=== PATIENT | male | born 1975 | race African-American/Black ===

== ENCOUNTER 2020-11-05 13:50 | Emergency (ER) | payer OTHER ==
[~2020-11-05] VITALS: Ht 182.9 cm; Wt 83.0 kg
--- NOTE | ~2020-11-05 | EMS ---
[facility] [address] [place] [address] EMS Patient Care Report Name: MARI LANDEROS Room #: REG ABA Cartwright#: [id number] Admission: 11/05/20 Attend Phys: Discharge: Date of : 79 Report #: [id number] THIS REPORT FOR: //name// Report Transmitted: 11/05/2020 13:36 EMS Care Summary [facility] Incident [id number] @ 11/05/2020 13:07 Incident Location [address] [place] [address] Patient MARI LANDEROS Male, 45 Years 1975 Patient Address [address] [place] [address] Patient History None Reported, Patient Allergies No known allergies, Patient Medications None Reported, Chief Complaint chest pressure with dizziness Disposition Transported No Lights/[place] Reason Heart Problems/AICD Transported To [facility] Narrative History-Pt started to have chest pain/pressure about 2 weeks ago. Pt was evaluated at an urgent care and referred to a search engine marketing strategist. Today the pt was dizzy with chest pain so 911 was called. Pt states that he had the COVID last Pfizer shot about 3 weeks ago. [facility] [address] [place] [address] EMS Patient Care Report Name: MARI LANDEROS Room #: PARADISE Cartwright#: [id number] Admission: 11/05/20 Attend Phys: Discharge: Date of : 79 Report #: [id number] Assessment: Neuros: GCS 15, A/O times 4, HEENT: Eyes: ASIA, neg blurred or double vision, Head: neg headache. Throat: patent. Neck: supple, neg blurred or double vision. Chest: chest pressure that has been going on for 2 weeks, hurts worse upon inspiration, radiates to the L shoulders, is a 3/10 but was a 8/10 earlier. CBBS, neg SOB. Abdomen: LUQ tenderness to palpation all other quadrants soft, non tender, Pelvis/GI/: normal urination and BM's. Extremities: +CMS. Back: neg pain, Skin: pink, dry, warm Rendered Tx-Pt had taken in date ASA 324 mg before our arrival, Vitals taken and monitored, EKG, 12 lead, infrared temp, IV Destination-Pt was sitting on a couch upon our arrival in the care of S[facility]. After our assessment the pt was reluctant to go to the ED but his had arrived then the pt agreed to be transported. Pt was able to walk outside to the cot where he was secured with 3 straps and shoulder straps then moved to the ambulance. Once in the ambulance pt was put in a POC which was semi-fowlers. Pt was transported to [facility] and taken to room 6. Pt was able to move to the bed on his own and care was transferred to staff. Initial Vitals @13:20P: 67,R: 14,SpO2: 98,AR Suspected: false @13:19P: 68,R: 81,AR Suspected: false @13:20P: 60,R: 14,BP: 169/105,Pain: 3/10,GCS: 15,SpO2: 98,Revised Trauma: 12, @13:35P: 72,R: 14,BP: 162/88,Pain: 3/10,GCS: 15,SpO2: 99,Revised Trauma: 12, @13:42P: 58,R: 14,BP: 144/85,GCS: 15,SpO2: 98,Revised Trauma: 12, @PTAP: 66,R: 10,BP: 164/90,Pain: 3/10,GCS: 15,Temp: 98.8F,SpO2: 98,Revised Trauma: 12, Assessments @13:20MENTAL:Person Oriented,Time Oriented,Place Oriented,Event Oriented,SKIN:HEENT:Eyes: Left Pupil: 4-mm,Eyes: Right Pupil: 4-mm,Head/Face: No Abnormalities,Neck/Airway: No Abnormalities,LUNG SOUNDS:Left Upper: Tenderness,ABDOMEN:Left Upper: Tenderness,PELVIS//GI:No Abnormalities,EXTREMITIES:Left Arm: No Abnormalities,Right Arm: No Abnormalities,Left Leg: No Abnormalities,Right Leg: No Abnormalities,PULSE:Radial: 2+ Normal,NEURO:No Abnormalities, Impression Chest Pain / Discomfort Procedures @13:1912-Lead ECGResponse: UnchangedSucceeded@PTAAspirin - 324 Milligrams (mg) - OralResponse: Unchanged@13:33Saline Lock 10cc (20 ga) Site: Antecubital-LeftResponse: UnchangedSucceeded Timeline CAREER SERVICES ASSISTANT,Aspirin - 324 Milligrams (mg) - Oral,Response: Unchanged CAREER SERVICES ASSISTANT,BP: 164/90 M,PULSE: 66,RR: 10 R,SPO2: 98 Ox,ETCO2: ,BG: ,PAIN: 3,GCS: 15, [facility] [address] [place] [address] EMS Patient Care Report Name: MARI LANDEROS Room #: REG [facility].#: [id number] Admission: 11/05/20 Attend Phys: Discharge: Date of : 79 Report #: [id number] 13:05,Call Received 13:05,Psap Call 13:07,Dispatched 13:07,En Route 13:14,On Scene 13:15,At Patient 13:19,12-Lead ECG,Response: UnchangedSucceeded, 13:19,BP: / M,PULSE: 68,RR: 81 R,SPO2: Ox,ETCO2: ,BG: ,PAIN: ,GCS: , 13:20,BP: / M,PULSE: 67,RR: 14 R,SPO2: 98 Ox,ETCO2: ,BG: ,PAIN: ,GCS: , 13:20,BP: 169/105 M,PULSE: 60,RR: 14 R,SPO2: 98 Ox,ETCO2: ,BG: ,PAIN: 3,GCS: 15, 13:33,Saline Lock 10cc 20 ga Site: Antecubital-Left,Response: UnchangedSucceeded, 13:33,Depart Scene 13:35,BP: 162/88 M,PULSE: 72,RR: 14 R,SPO2: 99 Ox,ETCO2: ,BG: ,PAIN: 3,GCS: 15, 13:42,BP: 144/85 M,PULSE: 58,RR: 14 R,SPO2: 98 Ox,ETCO2: ,BG: ,PAIN: ,GCS: 15, 13:48,At Destination 14:05,Call Closed Disclaimer v1.1 Copyright 2020 [employer] This EMS Care Summary contains data elements from the applicable legal record (which may be displayed differently). It is designed to provide pertinent information for the following purposes: continuity of care, clinical quality, and state data reporting. The complete legal record is available to ED staff and administrators of the receiving hospital in [facility]'s Patient Tracker. All data is provided "as is."
[2020-11-05] MEDS ORDERED: NOHOMEMEDICATIONS (14:06)
[2020-11-05 14:17] LABS: ABSOLUTE NEUTROPHILS 1.6 thou/uL (1.4-8.2); BASOPHILS 0.9 % (0.0-2.0); HEMATOCRIT 42.9 % (42.0-52.0); HEMOGLOBIN 14.5 gm/dL (14.0-18.0); LYMPHOCYTES 53.7 % (24.0-44.0); MCH 30.7 pg (26.0-34.0); MCHC 33.9 g/dL (28.0-37.0); MCV 90.6 fL (80.0-100.0); MONOCYTES 9.8 % (1.0-8.0); PLATELET COUNT 200 thou/uL (150-400); POLYS 32.6 % (36.0-66.0); RBC 4.73 mil/uL (4.50-6.00); RDW 13.2 % (10.5-14.5); WBC 4.8 thou/uL (4.0-11.0)
[2020-11-05 14:18] LABS: ANION GAP 10 mmol/L (7-16); BUN 13 mg/dL (7-18); CALCIUM 8.5 mg/dL (8.5-10.1); CHLORIDE 105 mmol/L (98-107); CO2 26 mmol/L (21-32); CREATININE 1.1 mg/dL (0.7-1.3); GLUCOSE 92 mg/dL (74-106); POTASSIUM 3.7 mmol/L (3.5-5.1); SODIUM 141 mmol/L (136-145)
[2020-11-05 14:29] LABS: ALBUMIN 3.8 g/dL (3.4-5.0); LIPASE 79 U/L (73-393); SGOT 36 U/L (15-37); SGPT 65 U/L (16-63); TOTAL BILIRUBIN 0.6 mg/dL (0.2-1.0); TOTAL PROTEIN 7.7 g/dL (6.4-8.2); TROPONIN-I <0.06 ng/mL (<0.06)
[2020-11-05 14:59] LABS: AMP/METHAMP Negative (Negative); BARBITURATES Negative (Negative); BENZODIAZEPINES Negative (Negative); COCAINE Negative (Negative); METHADONE Negative (Negative); OPIATES Negative (Negative); PCP Negative (Negative)
[2020-11-05] MEDS ORDERED: BENTYL 10 MG CA10 M1 PO (15:12)
[2020-11-05] MEDS ORDERED: PREVACID30 MG PO (15:12)
[2020-11-05 15:28] VITALS: BP 135/90
--- NOTE | 2020-11-07 07:21 | EKG ---
[place] [address] [facility] [place] [address] ELECTROCARDIOGRAM REPORT Name: MARI LANDEROS [id number] Admission: 11/05/20 Attend Phys: Discharge: 11/05/20 Date of : 79 Report #: [id number] 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: : 1975 Requested By: Isaias Gillespie Order Number: [id number] MD: Cirilo Brooks Measurements Intervals [place] Rate: 55 P: 47 SC: 169 QRS: 12 QRSD: 84 T: 26 QT: 394 QTc: 377 Interpretive Statements Sinus rhythm ST elev, probable normal early repol pattern Compared to ECG 12/29/2008 16:18:24 ST (T wave) deviation now present Sinus tachycardia no longer present Atrial abnormality no longer present Electronically Signed On 11-07-2020 7:21:18 CDT by Cirilo Brooks [email or web address] <ELECTRONICALLY SIGNED> By: Cirilo Brooks MD, [facility] [id number] Cirilo Brooks MD, [facility] /EPI
== END 2020-11-05 15:28 | disposition home or self-care (01) ==
LOC: ER 13:50
PROVIDERS: Emergency Medicine
DX: R07.89 Other chest pain (principal); M54.2 Cervicalgia; R42 Dizziness and giddiness